=== PATIENT | male | born 1945 | race Caucasian/White ===

== ENCOUNTER 2023-05-18 11:36 | Outpatient (REF) | payer BC, SELFPAY ==
[2023-05-18 12:22] LABS: MANUAL DIFF FLAG NO
[2023-05-18 12:47] LABS: Basophils Percent Auto 0.4 % (0-2); Eosinophils Absolute Auto 0.3 X10*3/uL (0.0-0.4); Eosinophils Percent Auto 2.9 % (0-4); Hematocrit 40.8 % (42.0-52.0); Hemoglobin 13.7 g/dl (14.0-18.0); Imm Gran Abs Auto 0.04 X10*3/uL (0.00-0.03); Imm Gran Pct Auto 0.4 % (0.0-0.4); Lymphocytes Absolute Auto 1.6 X10*3/uL (1.2-4.9); Lymphocytes Percent Auto 16.9 % (20-40); Mean Corpuscular HGB Conc 33.6 g/dl (31.0-36.0); Mean Corpuscular Hemoglobin 30.1 pg (27.0-33.0); Mean Corpuscular Volume 89.7 fL (80.0-98.0); Mean Platelet Volume 10.3 fL (9.4-12.4); Monocytes Absolute Auto 0.7 X10*3/uL (0.1-1.2); Monocytes Percent Auto 7.4 % (2-11); Neutrophils Absolute Auto 6.8 x10*3/uL (2.0-8.3); Platelet Count 290 X10*3/uL (160-400); Red Blood Count 4.55 X10*6/uL (4.60-5.80); Red Cell Distribution Width 12.9 % (11.0-16.0); White Blood Count 9.4 X10*3/uL (4.8-10.8)
[2023-05-18 13:29] LABS: Erythrocyte Sedimentation Rate 9 MM/HR (0-15)
[2023-05-18 13:45] LABS: C Reactive Protein < 0.10 mg/dL (< or = 0.50)
== END 2023-05-18 11:37 | disposition home or self-care (01) ==
LOC: HO.LAB 11:36
PROVIDERS: Visit Provider Registered Nurse
DX: G44.209 Tension-type headache, unspecified, not intractable (principal)
CPT/HCPCS: 36415; 85025; 85652; 86140

== ENCOUNTER 2023-09-07 13:11 | Outpatient (REF) | payer BC, SELFPAY ==
[2023-09-07 14:24] LABS: Blood Urea Nitrogen 24 mg/dL (9-16); Estimated Glomerular Filt Rate > 60
== END 2023-09-07 13:12 | disposition home or self-care (01) ==
LOC: HO.LAB 13:11
PROVIDERS: PCP Internal Medicine; Visit Provider Psychiatry & Neurology Neurology
DX: D32.9 Benign neoplasm of meninges, unspecified (principal)
CPT/HCPCS: 36415; 82565; 84520

== ENCOUNTER 2023-11-10 15:20 | Outpatient (REF) | payer BC, SELFPAY ==
--- NOTE | ~2023-11-10 | CT_ITS ---
EXAMINATION: CT HEAD WITH/WITHOUT CONTRAST CLINICAL INFORMATION: Tension headache. Follow-up meningioma. COMPARISON: CT head 09/10/2022. TECHNIQUE: Contiguous axial imaging was performed from the skull base to vertex before and after the administration of 85 mL of Omnipaque [address] examination was performed using dose optimization techniques as appropriate, variously including the following: *Automated exposure control *Adjustment of mA and/or kV according to patient size (this includes techniques or standardized protocols for targeted exams where dose is matched to indication/reason for exam; i.e. extremities or head) *Use of iterative reconstruction technique DLP: 1732 mGy-cm FINDINGS: Mild diffuse commensurate prominence of ventricles and sulci is again noted. No intracranial hemorrhage or acute infarcts visualized. No focal parenchymal lesions of the brain identified. Brachycephaly is again visualized. Mild eccentric focal calcific plaque is present in the proximal intradural segments of the left and right vertebral arteries and moderate segmental calcific atherosclerotic plaque is present in the cavernous portions of the internal carotid arteries. Moderate hyperostosis frontalis interna is visualized. The previously noted 9 mm x 3 mm (transverse X radial) dural based calcification contiguous with the left frontal lobe (series 5 image 28) is unchanged compared with 09/10/2022. This finding is without mass effect upon the adjacent brain parenchyma. No edema noted within the adjacent brain parenchyma. No abnormal enhancement of the brain parenchyma is visualized. The orbits and globes are normal in appearance. No significant opacification of the visualized paranasal sinuses, mastoid air cells and middle ear cavities. CT/CT head/brain wo/w IV con IMPRESSION: 1. Unchanged 9 mm dural calcification adjacent to the left frontal lobe stable compared with 09/10/2022. As previously noted, this finding could represent a calcified meningioma. A dystrophic area of dural calcification could have a similar appearance. This finding is without associated mass effect upon the adjacent brain parenchyma. This finding is of uncertain clinical significance. 2. Mild diffuse parenchymal volume loss the brain unchanged compared with 09/10/2022. Line 3. Mild-moderate intracranial atherosclerosis. 4. Incidental moderate hyperostosis frontalis interna.
[2023-11-10] MEDS: iohexoL 350 MG/ML 75 ML INFUS..BTL 85 ML IV (16:58)
[2023-11-12 07:24] LABS: Creatinine POC 0.7 mg/dL (0.5-1.4); GFR POC > 60
== END 2023-11-10 15:21 | disposition home or self-care (01) ==
LOC: HO.CT 15:20
PROVIDERS: PCP Internal Medicine; Visit Provider Psychiatry & Neurology Neurology
DX: G44.209 Tension-type headache, unspecified, not intractable (principal)
CPT/HCPCS: 70470; 82565; Q9967

== ENCOUNTER 2024-12-06 08:55 | Outpatient (AMB) | payer OTHER, SELFPAY ==
--- NOTE | 2024-12-06 09:18 | A.OFFVIS_ITS ---
Vital Signs 12/06/24 09:19 Height 5 ft 9 in Intake Visit Reasons: Last seen on 02/16/24 per eCW Accompanied by: Daughter Allergies Penicillins Allergy (Unknown, Verified 12/06/24 09:25) Unknown Sulfa (Sulfonamide Antibiotics) Allergy (Unknown, Verified 12/06/24 09:31) Unknown Medication List - Last Reconciled 12/06/24 by Megan Luong CNP atorvastatin 20 mg PO DAILY donepezil 10 mg PO BEDTIME lisinopril-hydrochlorothiazide 20-12.5 mg 1 tab PO DAILY memantine 10 mg PO BID metformin 500 mg PO BID propranolol 10 mg PO DAILY sertraline 150 mg PO DAILY HPI Comments Details: His of over 50 years passed unexpected earlier this year. Headaches are controlled with propranolol. Memory was about the same. Driving locally without issue. Enjoys watching TV and playing games on computer. Sleep was up and down. He fell backward outside about a month ago when trying to pull hose that was caught. Seen at [facility], had CT scan that was apparently okay, report not available for review at this time. He was walking with cane, no further falls. One occasion of left eyelid drooping after bad headache, no further episodes. Progressive memory problems, predominately short-term memory issues beginning around 2021. His often has to repeat herself. Has JEFFERY but cannot keep his mask on. Spends most of his time watching TV at home, sometimes goes out to get scratch tickets or occasionally to the casinos. He previously worked equal opportunity specialist, retired from the post office around 2007, and before that was [employer]. Review of Systems Const Denies chills, Denies daytime sleepiness, Reports difficulty sleeping, Denies fatigue, Denies fever(s), Denies frequent falls, Reports headache(s), Denies increased appetite, Denies poor appetite, Denies snoring, Denies weakness, Denies weight gain and Denies weight loss Eyes Denies loss of vision ENT Denies vertigo, Denies dizziness, Reports headache(s) and Denies neck pain Card Denies chest pain at rest, Denies chest pain with activity, Denies syncope, Denies leg edema, Denies palpitations, Denies dyspnea and Denies dyspnea on exertion Resp Denies cough, Denies dyspnea, Denies dyspnea on exertion and Denies snoring GI Denies abdominal pain, Denies constipation, Denies heartburn, Denies diarrhea and Denies nausea Denies urinary frequency, Denies urinary incontinence and Denies urinary urgency Musc Denies abnormal gait, Denies back pain, Denies myalgias, Denies arthralgias, Denies neck pain, Denies numbness and Denies tingling Neuro Denies abnormal gait, Denies vertigo, Denies dizziness, Denies syncope, Denies frequent falls, Reports headache(s), Denies lack of coordination, Denies loss of vision, Reports memory loss, Denies numbness, Denies Other visual disturbances, Denies restless legs, Denies seizure-like activity, Denies tingling, Denies paresthesias, Denies tremor(s) and Denies weakness Psych Denies anxiety, Reports depression, Denies auditory hallucinations, Reports memory loss and Denies visual hallucinations Endo Denies fatigue and Denies palpitations Physical Exam Const Other: General Appearance:? normal, in no acute distress. Heart:? S1, S2 normal, no murmurs. Lungs:? clear anteriorly and posteriorly. Musculoskeletal:? normal. Extremities:? no edema. Psych:? alert, as below. Neuro Other: Abnormal Neurological Findings:?Walking with cane. MMSE 26/30. Mental Status: alert, as below. Cranial Nerves: Pupils are equal, round, and reactive to light. External ocular muscles are intact. Visual archibald are full, no ptosis. Face is symmetrical, no facial weakness or droop. Facial sensations are normal. Tongue protrudes in midline. Palate elevates symmetrically. Shoulder shrugging is normal Motor Examination: Normal muscle tone, bulk and strength. No atrophy or fasciculations. No drift of the extended upper extremities. DTR 2+. Plantars are flexor. Sensory Exam: Normal light touch, temperature, pinprick, vibration, and joint- position sensations. Rhomberg sign is absent. Coordination: No ataxia. No titubation. [id number], [id number]-[id number] test, and rapid alternating movements were normal. Gait Exam: With cane. Cerebellar Signs: [id number] is okay. Extrapyramidal System: No tremor, rigidity with normal facial expressions. No bradykinesia. No bradyphrenia. Normal arm swing and posture. No propulsion or retropulsion. Speech: Normal. No dysphasia or dysarthria. MMSE Level of Consciousness: Alert. Orientation: Knows correct season. Knows correct city and state. Knows correct location and floor. Does not know year, month, date, day, or county. Registration: Able to register 3 objects. Attention: Serial 7's performed accurately to 93 Recall: Able to recall 3 out of 3 objects. Language: Normal spontaneous speech, fluency, repetition, naming, comprehension, reading, and writing. Total Score: 21/30. Results Reviewed Results Reviewed: 09/2022 CT shows small left parietal meningioma 11/10/2023 CT brain: Unchanged 9 mm dural calcification adjacent to the left frontal lobe stable compared with 09/10/2022, mild diffuse parenchymal volume loss the brain unchanged compared with 09/10/2022, mild-moderate intracranial atherosclerosis. Assessment & Plan Assessment & Plan (1) Alzheimer dementia: Code(s): G30.9 - Alzheimer's disease, unspecified; F02.80 - Dementia in other diseases classified elsewhere, unspecified severity, without behavioral disturbance, psychotic disturbance, mood disturbance, and anxiety Category: Medical Qualifiers: Alzheimer's disease onset: unspecified onset Dementia severity: mild Dementia behavioral or psychological symptom: without behavioral, psychotic, or mood disturbance or anxiety Qualified Code(s): G30.9 - Alzheimer's disease, unspecified; F02.A0 - Dementia in other diseases classified elsewhere, mild, without behavioral disturbance, psychotic disturbance, mood disturbance, and anxiety Plan: Continue donepezil 10mg 1 tablet at bedtime. Continue memantine 10mg 1 tablet twice a day. Stay physically and socially active, use cane. (2) Tension headache: Code(s): G44.209 - Tension-type headache, unspecified, not intractable Category: Medical Plan: Continue propranolol 10mg 1 tablet daily (3) Meningioma: Code(s): D32.9 - Benign neoplasm of meninges, unspecified Category: Medical Plan . Coding Level of Care Code Est Pt Level 4 (64177) Diagnoses Mild Alzheimer's dementia without behavioral disturbance, psychotic disturbance, mood disturbance, or anxiety, unspecified timing of dementia onset G30.9; F0 2.A0 Alzheimer's disease onset: unspecified onset Dementia severity: mild Dementia behavioral or psychological symptom: without behavioral, psycho tic, or mood disturbance or anxiety Tension headache G44.209 Meningioma D32.9
--- OUTSIDE RECORDS SUMMARY | 2024-12-06 09:19 | XMS_ITS | Clinical Summary ---
Author Organization [facility] Address [address] [place] [address] Care Team Providers Care Person Investigator Name Role Phone Kvng Gonzalez MD Primary Care Provider [phone] Allergies Active Allergy Reactions Criticality Noted Date Comments Penicillins 08/30/2017 Sulfa Antibiotics 08/30/2017 Medications Medication Sig Dispensed Refills Start Date End Date Status metFORMIN (GLUCOPHAGE) tablet 500 mg Take 500 mg by mouth 2 (two) times a day with meals. 0 Active lisinopril 10 MG TABS 1 tablet, hydroCHLOROthiazide 12.5 MG CAPS 1 capsule Take 1 tablet by mouth daily. 0 Active Multiple Vitamins-Minerals (PRESERVISION AREDS PO) Take by mouth. 0 Active sertraline (ZOLOFT) 100 MG tablet Take 100 mg by mouth daily. 0 Active lisinopril-hydrochlorothiaz delores (PRINZIDE,ZESTORETIC) tablet 20-12.5 mg TAKE 1 TABLET BY MOUTH ONCE DAILY 3 08/03/2017 Active atorvastatin (LIPITOR) tablet 20 mg TAKE 1 TABLET ONCE DAILY 3 08/03/2017 Active Active Problems Problem Noted Date Diagnosed Date Kidney stone Family History Medical History Relation Name Comments Cancer Mother Cancer Sister Relation Name Status Comments Mother Sister Social History Tobacco Use Types Packs/Day Years Used Date Smoking Tobacco: Never Smokeless Tobacco: Never Alcohol Use Standard Drinks/Week Comments Yes 0 (1 standard drink = 0.6 oz pur e alcohol) Sex and Gender Information Value Date Recorded Sex Assigned at Not on file Gender Identity Not on file Sexual Orientation Not on file Last Filed Vital Signs Vital Sign Reading Time Taken Comments Blood Pressure 112/60 08/31/2017 1:01 PM EDT Pulse - - Temperature - - Respiratory Rate - - Oxygen Saturation - - Inhaled Oxygen Concentration - - Weight 96.6 kg (213 lb) 08/31/2017 1:01 PM EDT Height 172.7 cm (5' 8 ) 08/31/2017 1:01 PM EDT Body Mass Index 32.39 08/31/2017 1:01 PM EDT Plan of Treatment Health Maintenance Due Date Last Done Comments Hepatitis C Screening 1945 COVID-19 Vaccine (#1) 03/06/1946 Depression Screening 1959 Preventative Health Evaluation 09/04/1965 DTap / Tdap / Td (1 - Tdap) 09/04/1966 Shingrix-Zoster Vaccine (1 of 2) 09/04/1997 Fall Risk Assessment 09/04/2012 Pneumococcal Vaccine (1 of 1 - PCV) 09/04/2012 RSV Adult > 60+ Yrs or Pregn ant (1 - 1-dose 75+ series) 09/04/2022 Influenza Vaccine (#1) 2025 Hepatitis B Vaccines Aged Out No long er eligible based on patient's age to complete this topic RSV Ped < 20 months Aged Out No longe r eligible based on patient's age to complete this topic Care Teams Person Investigator Relationship Specialty Start Date End Date Kvng Gonzalez MD [address] [place] [address] PCP - General Internal Medicine 08/30/17
--- OUTSIDE RECORDS SUMMARY | 2024-12-06 09:19 | XMS_ITS | Clinical Summary ---
Author Organization [facility] Address [address] [place] [address] Care Team Providers Care Demographer Name Role Phone Unavailable Primary Care Provider Unavailabl e Social History Tobacco Use Types Packs/Day Years Used Date Smoking Tobacco: Never Assessed Sex and Gender Information Value Date Recorded Sex Assigned at Not on file Legal Sex Male 1:36 PM EST Gender Identity Not on file Sexual Orientation Not on file Plan of Treatment Health Maintenance Due Date Last Done Comments Diabetes: Annual GFR (Glomerular Filtration Rate) 1945 Diabetes: Annual Foot Exam 09/04/1957 Diabetes: Annual Retina Eye Exam 09/04/1957 DTaP,Tdap,and Td Vaccines (1 - Tdap) 09/04/1966 Pneumococcal Vaccine: 50+ Years (1 of 1 - PCV) 09/04/1997 Zoster Vaccines (1 of 2) 09/04/1997 Cholesterol Screening (Lipid Panel) 04/07/2022 Falls Risk Assessment 04/07/2022 Hepatitis C Screening 04/07/2022 Social Influencers of Health Screening 04/07/2022 RSV Immunization Adult Patients (1 - 1-dose 75+ series) 09/04/2022 COVID-19 Vaccine ( season) 2024 08/06/2020, 07/09/2020 Depression Screening 05/10/2024 Diabetes: Annual Urine Albumin-Creatinine Ratio (uACR) 07/14/2024 Diabetes: Blood Sugar Control Test (HGBA1C) 07/14/2024 Hypertension/CHF/CAD Annual BMP Blood Test 07/14/2024 Influenza Vaccine (#1) 2025 , 01/22/2023, 01/23/2022, Additional history exists HIB Vaccines Aged Out No longer eligi ble based on patient's age to complete this topic HPV Vaccines Aged Out No longer eligi ble based on patient's age to complete this topic Hepatitis A Vaccines Aged Out No long er eligible based on patient's age to complete this topic Hepatitis B Vaccines Aged Out No long er eligible based on patient's age to complete this topic IPV Vaccines Aged Out No longer eligi ble based on patient's age to complete this topic MMR Vaccines Aged Out No longer eligi ble based on patient's age to complete this topic Meningococcal ACWY Vaccine Aged Out N o longer eligible based on patient's age to complete this topic Meningococcal B Vaccine Aged Out No l onger eligible based on patient's age to complete this topic RSV Immunization Patients Under 20 months Aged Out No longer eligible based on patient's age to complete this topic Varicella Vaccines Aged Out No longer eligible based on patient's age to complete this topic
== END 2024-12-06 09:52 | disposition home or self-care (01) ==
LOC: HO.HSM 08:55
PROVIDERS: PCP Internal Medicine; Visit Provider Registered Nurse
DX: G30.9 Alzheimer's disease, unspecified (principal); F02.A0 Dementia in other diseases classified elsewhere, mild, without behavioral disturbance, psychotic disturbance, mood disturbance, and anxiety; G44.209 Tension-type headache, unspecified, not intractable; D32.9 Benign neoplasm of meninges, unspecified
CPT/HCPCS: 99214

== ENCOUNTER → 2024-12-06 08:55 | Outpatient (BNVA) | payer OTHER, SELFPAY | PROVIDERS: PCP Internal Medicine; Visit Provider Registered Nurse | DX: G30.9 Alzheimer's disease, unspecified (principal); F02.A0 Dementia in other diseases classified elsewhere, mild, without behavioral disturbance, psychotic disturbance, mood disturbance, and anxiety; G44.209 Tension-type headache, unspecified, not intractable; D32.9 Benign neoplasm of meninges, unspecified | CPT/HCPCS: 99212 ==